=== PATIENT | female | born 1990 ===

== ENCOUNTER → 2023-06-18 09:18 | Outpatient (CLI) | payer OTHER, SELFPAY ==
--- NOTE | 2023-06-18 | DI.MRI.S_ITS ---
PROCEDURE: MR HIP RT WO CON INDICATIONS: Pain in right hip TECHNIQUE: Noncontrast coronal T1 spin echo and STIR through the bony pelvis. Coronal and axial T2 fast spin echo with fat saturation, sagittal T1 spin echo, and oblique axial T2 fast spin echo with fat saturation through the hip. COMPARISON: None. FINDINGS: Image quality: Excellent. Bones and joints: Bone marrow of the pelvic ring and proximal femurs show normal signal throughout. No intraosseous lesions or fractures. No avascular necrosis of the femoral heads. The visualized lower lumbar spine appears normally aligned. Tendons and ligaments: Low-grade partial-thickness tear involving distal right gluteus medius tendon at its insertion on greater trochanter is seen. Distal right gluteus minimus tendinosis is also noted. The nearby proximal iliotibial band also appears intact. The iliopsoas tendon appears intact, without adjacent bursal fluid collections or evidence for impingement syndrome. Tendinosis involving right hamstring tendon origins at ischial tuberosity is also seen. Labrum and cartilage: The acetabular labrum appears intact in the absence of intra-articular contrast. Cartilage surface of the femoral head appears of normal thickness. The alpha angle of the femur is within normal limits at less than 55 degrees. Soft tissues: Visualized muscles demonstrate normal bulk and internal signal. Quadratus femoris muscle demonstrates no internal edema to suggest ischiofemoral impingement. The proximal sciatic neurovascular bundle appears normal adjacent to the hamstring tendons. No free pelvic fluid. Bladder wall thickness is normal. Genitourinary structures and bowel loops appear normal where visualized. IMPRESSION: 1. No marrow edema. No right hip fracture or dislocation. No evidence of avascular necrosis. 2. Low-grade partial-thickness tear involving distal right gluteus medius tendon. Distal right gluteus minimus tendinosis. Tendinosis involving right hamstring tendon origins at ischial tuberosity. 3. No gross right hip labral tear is seen. Dictated by: Wily Mcintyre M.D. on 06/18/2023 at 11:34 Approved by: Wily Mcintyre M.D. on 06/18/2023 at 11:40
== END ==
LOC: MRI 09:18
PROVIDERS: PCP Nurse Practitioner Family; Referring Provider Nurse Practitioner Family; Visit Provider Nurse Practitioner Family
DX: S76.011A Strain of muscle, fascia and tendon of right hip, initial encounter (principal); M25.551 Pain in right hip
CPT/HCPCS: 73721

== ENCOUNTER → 2023-11-28 12:16 | Outpatient (CLI) | payer OTHER, SELFPAY ==
--- NOTE | 2023-11-28 12:17 | DI.MRI.S_ITS ---
PROCEDURE: MR CERVICAL SPINE WO CON INDICATIONS: Cervicalgia TECHNIQUE: Noncontrast sagittal T1 spin echo and T2 fast spin echo, sagittal STIR, foraminal oblique sagittal T2 fast spin echo, and axial gradient echo or T2 fast spin echo through the cervical spine. COMPARISON: None. FINDINGS: Image quality: Excellent Mild straightening of cervical spine. Mild anterolisthesis of C4 on C5. Vertebral body height of cervical spine is well maintained. Marrow signal cervical spine is normal for age. Mild multilevel disc bulge and disc desiccation. Cord signal of the cervical spine is unremarkable. There is a 1.6 cm T2 hyperintense lesion anterior to T4 vertebral body, incompletely characterized. Right neural foraminal stenosis: Mild at C4-5 Left neural foraminal stenosis: None. Central canal stenosis: C2-3: Unremarkable C3-4: Unremarkable C4-5: Mild disc bulge. No central canal stenosis. C5-6: Mild disc bulge. Mild bilateral facet arthropathy. No central canal stenosis. C6-7: Unremarkable C7-T1: Unremarkable IMPRESSION: 1. Minimal degenerative changes of the cervical spine, most pronounced at C4-5, with there is mild right neural foraminal stenosis. 2. 1.6 cm T2 hyperintense lesion anterior to T4 vertebral body, incompletely characterized. Recommend further evaluation with CT chest with intravenous contrast. Dictated by: Vivian Morton M.D. on 11/28/2023 at 15:48 Approved by: Vivian Morton M.D. on 11/28/2023 at 16:00
== END ==
PROVIDERS: PCP Nurse Practitioner Family; Referring Provider Nurse Practitioner Family; Visit Provider Nurse Practitioner Family
DX: M54.2 Cervicalgia (principal); M48.02 Spinal stenosis, cervical region
CPT/HCPCS: 72141